=== PATIENT | male | born 1990 | race African-American/Black ===

== ENCOUNTER 2021-09-15 16:09 | Inpatient (IN) | payer SELFPAY ==
[~2021-09-15] VITALS: Ht 175.3 cm; Wt 64.9 kg
--- NOTE | 2021-09-15 16:41 | NUR ---
BIBRA - PATIENT FOUND UNCONSCIOUS ON SIDE WALK, NO ID NO INFORMATION NO WALLET ON PATIENT, BLOOD NOTED ON LEFT DISTAL FINGER APPEARS TO BE FROM SOMEONE ELSE, NO SKIN TEARS NO TRAUMA NOTED ON EXTERIOR OF BODY, WILL NOT SPEAK NOR RESPOND TO ANY VERBAL COMMANDS, GIVEN ICE WATER, DID NOT DRINK - MOVED LIPS BUT DID NOT SWALLOW. MD TO EVALUATE FOR ORDERS AND ANY TESTS AT THIS TIME, GIVEN WARM BLANKET, EKG CONNECTED, OXYGEN READER APPLIED TO MIDDLE RIGHT FINGER 98-100% ROOM AIR, NO SOB NOTED, NO LABORED BREATHING NOTED, B/P CUFF APPPLIED, TEMP AT 97.9 AXILLARY LEFT SIDE. WILL CLOSELY MONITOR AT THIS TIME.
--- NOTE | 2021-09-15 17:20 | NUR ---
BS = 79
[2021-09-15] MEDS ORDERED: IV NS 0.9% 1,000 ML BAG IV ONE (18:30)
--- NOTE | 2021-09-15 18:55 | NUR ---
20 G R AC, RESTRAINTS BI-LATERAL ARMS DUE TO RESTLESS DURING IV IMPLEMENTATION EFFECTIVE, BLOOD DRAW FOR LABS COMPLETED, NS RUNNING VIA GRAVITY, IV PATENT, FLUSHING WELL INTACT
--- NOTE | 2021-09-15 19:10 | NUR ---
STRAIGHT CATH TO OBTAIN URINE SPECIMEN
--- NOTE | 2021-09-15 19:22 | NUR ---
ATTEMPTED TO OBTAIN URINE SPECIMEN WITH STRAIGHT CATH, NO URINE OUT PUT AT THIS TIME, WILL WAIT UNTIL IV FLUIDS ARE ADMIN AND TRY AGAIN PER MD ORDERS
--- NOTE | 2021-09-15 19:30 | NUR ---
DETECTOR CAR OPERATOR AT PT'S BEDSIDE
[2021-09-15 20:33] LABS: BASOPHILS % (AUTO) 0.3 % (0.0-2.0); HEMATOCRIT 39 % (39-51); HEMOGLOBIN 12.5 g/dL (13.5-17.5); LYMPHOCYTES # (AUTO) 0.8 K/uL (0.8-4.8); LYMPHOCYTES % (AUTO) 12.3 % (20.0-44.0); MEAN CORPUSCULAR HGB CONC 32 g/dl (31.0-36.0); MEAN CORPUSCULAR VOLUME 83 fL (80-96); MONOCYTES # (AUTO) 0.5 K/uL (0.1-1.30); NEUTROPHILS # (AUTO) 5.4 K/uL (1.8-8.9); NEUTROPHILS % (AUTO) 80.4 % (43.0-81.0); PLATELET COUNT (AUTO) 187 K/uL (150-450); RED BLOOD CELL COUNT(AUTO) 4.68 MIL/uL (4.5-6.0); WHITE BLOOD COUNT (AUTO) 6.7 K/uL (4.3-11.0)
--- NOTE | 2021-09-15 20:38 | NUR ---
URINE COLLECTED AND SENT TO LAB
[2021-09-15 20:45] LABS: CALCIUM, SERUM 8.5 mg/dL (8.5-10.1); CARBON DIOXIDE 27 mmol/L (21-32); CHLORIDE 105 mmol/L (98-107); CREATININE 0.9 mg/dL (0.6-1.3); GLUCOSE 98 mg/dL (74-106); POTASSIUM 3.8 mmol/L (3.5-5.1); SODIUM SERUM 140 mmol/L (136-145); UREA NITROGEN, BLOOD 19 mg/dL (7-18)
[2021-09-15 20:48] LABS: ALANINE AMINOTRANSFERASE 17 U/L (12-78); ALCOHOL, BLOOD < 3 mg/dL (0-0); ALKALINE PHOSPHATASE 62 U/L (46-116); ASPARTATE AMINOTRANSFERASE 24 U/L (15-37); BILIRUBIN,DIRECT 0.1 mg/dL (0.0-0.2); BILIRUBIN,TOTAL 0.6 mg/dL (0.2-1.0); TOTAL PROTEIN, SERUM 7.4 g/dL (6.4-8.2)
[2021-09-15 20:50] LABS: ACETAMINOPHEN < 0 ug/ml (10-30)
[2021-09-15] MEDS ORDERED: LORAZEPAM INJ 2 MG/ML VIAL IV ONE (21:00)
[2021-09-15 21:19] LABS: BILIRUBIN,URINE SMALL (NEGATIVE); COLOR,URINE YELLOW (YELLOW); LEUKOCYTE ESTERASE ,URINE NEGATIVE (NEGATIVE); NITRITE, URINE NEGATIVE (NEGATIVE); PH,URINE 5.5 (5.0-8.0); PROTEIN,URINE 100 mg/dl (NEGATIVE); UGLUCOSE NEGATIVE (NEGATIVE); UROBILINOGEN,URINE 0.2 EU/dL (0.2)
[2021-09-15 21:27] LABS: BACTERIA,URINE RARE /HPF (None Seen); RBC,URINE 21-50 /HPF (0-2); SQUAMOUS EPITHELIAL CELL,UR 0-2 /HPF (None Seen); WBC,URINE 0-2 /HPF (0-3)
--- NOTE | 2021-09-15 21:32 | NUR ---
325 - 1 . REPORT GIVEN TO NAKUL KimW RN FOR LILIANA
[2021-09-15] MEDS ORDERED: LORAZEPAM INJ 2 MG/ML VIAL ONE (21:38)
--- NOTE | 2021-09-15 21:39 | NUR ---
MRSA SWAB COLLECTED AND SENT TO LAB. PATIENT'S BELONGINGS LIST DONE.
--- NOTE | 2021-09-15 21:42 | NUR ---
TRANSFERRING PT TO 325 VIA ACLS PROTOCOL
[2021-09-15 21:45] VITALS: BP 129/73
[2021-09-15] MEDS ORDERED: ONDANSETRON HCL/PF 4 MG/2 ML VIAL IVP PRN (22:00)
[2021-09-15] MEDS ORDERED: ENOXAPARIN SODIUM 40 MG/0.4 ML DISP.SYRIN SQ SCH (22:00)
[2021-09-15] MEDS ORDERED: ACETAMINOPHEN 325 MG TABLET PO PRN (22:00)
[2021-09-15] MEDS ORDERED: MORPHINE SULFATE INJ 2 MG/ML DISP.SYRIN IV PRN (22:00)
--- NOTE | 2021-09-15 22:30 | NUR ---
TUMBLER DRIER OPERATORINSURANCE AND FINANCIAL SERVICES AGENT NOTES: RECEIVED PATIENT AWAKE FROM ER VIA GURNEY, APPEARS CALM AND QUIET, PLACE IN BED COMFORTABLY, BED IN LOW POSITION, CALL LIGHTS WITHIN REACH, NO COMPLAIN OF PAIN AND DISCOMFORT AT THIS TIME, ON TELE MONITORING SR-83 WITH RAC#20 WITH ONGOING NSS@75MLPER HOUR INFUSING WELL, ASSESSMENT DONE PATIENT IS UNCOOPERATIVE NOT RESPONDING TO QUESTION, APPEARS CONFUSED BUT NONE COMBATIVE. INVENTORY DONE, SKIN ASSESSMENTS DONE, INTACT, NO SKIN ISSUES OBSERVED, PATIENT WAS ORIENTED TO ROOM REMIND TO USE CALLLIGHTS WHEN NEEDED ASSISTANCE, KEPT CLEAN AND DRY ALL NEEDS MET WILL CONTINUE TO MONITOR.
[2021-09-15] MEDS: IV NS 0.9% 1,000 ML IV SCH (23:13)
[2021-09-16] VITALS: BP 125/76
--- NOTE | 2021-09-16 01:00 | NUR ---
RN NOTES: PATIENT ATTEMPT TO LEAVE THE ROOM. REMOVE IV LINE AND TELE MONITORING, BECOMING COMBATIVE STILLC APPEARS CONFUSED AND STARTED TO BECOME COMBATIVE, CALLED SECURITY AND PLACE PATIENT ON RESTRAINT, NOTIFY HOSPITALIST AND ORDER ATIVAN 2MG ONE TIME GIVEN NOTED AND CARRY OUT, PATIENT WAS ON BILATERAL SOFT RESTRAINT, WITH !:1 SITTER, IV REINSERT AGAIN ON RIGHT HAND,
[2021-09-16] MEDS ORDERED: LORAZEPAM INJ 2 MG/ML VIAL IM/IV ONE (02:00)
[2021-09-16] MEDS ORDERED: HALOPERIDOL DECANOATE IM 100 MG/ML AMPUL IM ONE ×2 (02:30)
--- NOTE | 2021-09-16 02:30 | NUR ---
RN NOTES PATIENT WAS ABLE TO REMOVED HIS RESTRAINT AND ATTEMPTED TO LEAVE THE ROOM AGAIN APPEARS CONFUSED CALL SECURITY FOR ASSISTANCE AND CALL PLACED BACK ON HIS ROOM. REINSERTED IV LINE WAS REMOVED PATIENT REFUSED TO BE REINSERTED, ORDERED 1:! SITTER, WILL CONTINUE TO MONITOR.
[2021-09-16] MEDS ORDERED: HALOPERIDOL LACTATE INJ 5 MG/ML VIAL IM ONE (03:00)
[2021-09-16 04:00] VITALS: BP 120/68
--- NOTE | 2021-09-16 06:56 | NUR ---
RN CLOSING NOTES: PATIENT SLEEP IN BED COMFORTABLY, BED IN LOW POSITION CALL LIGHTS WITHIN REACH,NO COMPLAIN OF PAIN AND DISCOMFORT AT THIS TIME, PATIENT IS A/O X2-CONFUSED DISORIENTED, ON ROOM AIR SATURATING WELL, PATIENT WITH 1:1 SITTER ATTEMPTING TO LEAVE AND COMBATIVE, PATIENT KEPT CLEAN AND DRY ALL NEEDS MET ENDORSE TO INCOMING SHIFT.
[2021-09-16 07:19] LABS: BASOPHILS % (AUTO) 0.1 % (0.0-2.0); EOSINOPHILS % (AUTO) 0.4 % (0.0-6.0); HEMATOCRIT 38 % (39-51); HEMOGLOBIN 12.3 g/dL (13.5-17.5); LYMPHOCYTES # (AUTO) 1.4 K/uL (0.8-4.8); LYMPHOCYTES % (AUTO) 22.5 % (20.0-44.0); MEAN CORPUSCULAR HGB CONC 32 g/dl (31.0-36.0); MEAN CORPUSCULAR VOLUME 83 fL (80-96); MONOCYTES # (AUTO) 0.8 K/uL (0.1-1.30); MONOCYTES % (AUTO) 11.9 % (2.0-12.0); NEUTROPHILS # (AUTO) 4.1 K/uL (1.8-8.9); NEUTROPHILS % (AUTO) 65.1 % (43.0-81.0); PLATELET COUNT (AUTO) 167 K/uL (150-450); RED BLOOD CELL COUNT(AUTO) 4.58 MIL/uL (4.5-6.0); WHITE BLOOD COUNT (AUTO) 6.3 K/uL (4.3-11.0)
[2021-09-16 07:41] LABS: ALBUMIN 3.6 g/dL (3.4-5.0); BILIRUBIN,TOTAL 0.6 mg/dL (0.2-1.0); CALCIUM, SERUM 8.4 mg/dL (8.5-10.1); CREATININE 0.7 mg/dL (0.6-1.3); MAGNESIUM 2.7 mg/dL (1.8-2.4); PHOSPHORUS 4.2 mg/dL (2.5-4.9); POTASSIUM 3.9 mmol/L (3.5-5.1); TOTAL PROTEIN, SERUM 6.8 g/dL (6.4-8.2)
[2021-09-16] MEDS ORDERED: HALOPERIDOL LACTATE INJ 5 MG/ML VIAL IM PRN (10:00)
--- NOTE | 2021-09-16 10:00 | NUR ---
PATIENT IS AWAKE. ABLE TO REMOVE THE BILATERAL HAND SOFT RESTRAINTS WHILE SITTER WAS TENDING TO ANOTHER PATIENT ON THE NEXT BED. PATIENT IS AWAKE, AMBULATORY, DOES NOT KNOW HIS NAME, ABLE TO ACKNOWLEDGED HE IS IN THE HOSPITAL. DR. VELASQUEZ SPOKE WITH THE PATIENT AND ASSESSED. PATIENT IS VERY RESTLESS, KEEPS PACING BACK AND FORTH OF THE UNIT, ATTEMPTING TO GO DOWNSTAIRS IN THE ELEVATOR. REFUSED TO STAY IN HIS ROOM. DR. VELASQUEZ ORDERED HALDOL 5MG IM Q8HRS PRN AND ATIVAN 2MG IV Q6HRS PRN FOR RESTLESSNESS. WILL MONITOR PATIENT AND CARRY OUT THE ORDERS.
--- NOTE | 2021-09-16 10:20 | NUR ---
PATIENT IS VERY RESTLESS. ATIVAN 2MG/1ML GIVEN VIA IV PUSH. WILL MONITOR.
[2021-09-16] MEDS ORDERED: LORAZEPAM INJ 2 MG/ML VIAL IV PRN (10:30)
--- NOTE | 2021-09-16 10:40 | NUR ---
RAKEL RAI, BEHAVIORAL/METER MAKER ASSESSED PATIENT AT BEDSIDE. PER FREDI, PATIENT IS NOT "HOLDABLE". PATIENT IS NOT WILLING TO GIVE HIS NAME, PATIENT IS NOT AGGRESSIVE, IF PATIENT WANTS TO LEAVE HOSPITAL THEN HE CAN LEAVE. CHARGE NURSE RENAE AND AWARE. PATIENT IS SITTING AT THE CHAIR IN THE ROOM. WILL MONITOR.
--- NOTE | 2021-09-16 11:00 | NUR ---
SS Note: SS Consult requested for Ryder Harkins as pt. is confused, restless and wanting to be discharged to self. SW met with pt. at bedside and the pt. is alert and oriented x 2. Pt. is able to engage in meaningful conversation. Pt. is guarded. Pt. states he is refusing to provide name, address or birthrate as, "that is very personal information". The pt. appears well-groomed (clean, well shaven) and states that he was jogging when he became dehydrated and paramedics picked him up and brought him to the hospital. Pt. is pleasant and remained calm throughout interview. The pt. denies SI/HI and denies hallucinations. SW explored pt.'s mental health Hx. Pt denies any mental health diagnoses or psychotropic medication use. The pt. states he suffers from migraines and that resides in [place]. SW explored pt.'s familial support. Pt. states he is not and lives alone. Pt. states there is no family or friends that we can call. SW helped pt. with discharge plan and pt. is agreeable to [place] and stated he can find his way home. DERECK asked patient for his name & address on 4 separate occasions and pt. still refused. SW encouraged pt. to rest and stay to complete medical care until clearance. Pt. seemed ambivalent about it but has not left. DERECK discussed with patient's nurse. The pt. does not meet 5150 hold criteria at this time and is able to leave AMA if he wants. DERECK will provide pt. with homeless resources as a precaution and have him sign the homeless waiver. Year-round shelters: [facility] [address] [place] [place] [address] ; [facility] [address] [place] [address]; [facility] [address] [facility] [address] Winter Shelters: SPA 2 | [facility] Nicoleder: Carola aldrich the [place] Address: Confidential (call for location ) Population Served: Coed # of Beds: 57 SPA 4 | [facility] Provider: [facility] Address: [address] [place] [address] # of Beds: 49 Population Served: Coed SPA 6 | [facility] Provider: [facility]: [address] [facility] [address] # of Beds: 49 Population Served: Coed [facility] Provider: Silvano Grace DCD Address: [address] [facility] [address] # of Beds: 20 Population Served: Women GO Facility Provider: [facility] Last Address: [address] [facility] [address] # of Beds: 30 Population Served: Women SPA 8 | [facility] Provider: Aliya aldrich Kristen Address: [address] [facility] [address] # of Beds: 65 Population Served: Coed Hygiene: [facility]: [address] [facility] ; [facility] [address] [facility] ; [facility] [address] [facility] . Food Resources: [place] [facility] at [facility]- [address] [facility]; Meet Each Need with Dignity ([facility]) [address] [facility]; [facility] [address] [facility]; [facility] [address] [facility]. Mental Health resources provided: [facility] [address] [place] [address] ; [facility] [address] [facility] [address], [place] [address] ; [facility] [address] [place] [address] ; [facility] [address] [place] [address] Healthcare Clinics: [facility] [address] [facility], [address] [place]. [place] ; [facility] [address] [facility] [address] [place] [address]; [facility] [address] [facility] [phone]) [phone] Counseling--Outpatient [facility] [address] [facility], [place] [address] (Specializes in in-depth psychotherapy for emotional distress: anxiety, depression, interpersonal conflicts, life transitions, childhood abuse) [facility] [address] [place] [address] (Assist with solving problem marital difficulties, separation & divorce, aging parents, & grief, chronic & terminal illness) [facility] [address] [place] [address] (Deal with loss & grief, anxiety, marital difficulties) [facility] Health [facility] [address] [facility], [address] [place] [address] (Provide in-home mental services to people who are incapable of leaving their homes) [facility] Elder[facility] Senior Service/[facility] [address] [facility] [place] [address] [facility] [address] [facility] [place] [address] PSYCHIATRIC OUTPATIENT SERVICES [facility] Partial Hospitalization and Intensive Outpatient Program (Managed Care and [place] Only)[address] [facility]. [facility] [phone] [facility] Partial Hospitalization and Outpatient [id number] [facility] [address] [place], [place] [phone] [facility] Mental Health Center [id number] [facility] [address] [place], [place] [phone] [facility] Partial Hospitalization and Outpatient [id number] [place], [phone] Substance Abuse resources provided included: [facility] Substance Abuse Self-Helpline ([facility]) ; [facility] [address] [facility]. [place] [address] ; [facility] [address] [facility] [address] ; [facility] [address] [place] [address] ; [facility] [address] [facility] [id number] ; [facility] [address] [facility] [address] ; [facility] [address] [facility] [phone] ; [facility] Substance Abuse Helpline([facility] ; [facility] ; [facility] [place]; [facility] [place]; [facility] [place]; [facility] [place]; [facility] [place]; [facility]; [facility] [place]; Alcoholics Anonymous -SFV; Th-Gimq-Mrswtej ; Marijuana Anonymous -[facility]; Narcotics Anonymous [email or web address];
[2021-09-16] MEDS: IV NS 0.9% 1,000 ML IV SCH (12:58)
--- NOTE | 2021-09-16 14:45 | NUR ---
PATIENT IS RESTLESS AND WANTING TO LEAVE THE HOSPITAL. PATIENT ASKED CHARGE NURSE RENAE IF HE CAN LEAVE HOSPITAL. PATIENT IS NOT "HOLDABLE" AND IS ABLE TO LEAVE HOSPITAL. PATIENT SIGNED "AGAINST MEDICAL ADVISE" FORM. RN EXPLAINED THE RISKS OF DOING "AMA", PATIENT UNDERSTOOD. PATIENT SAID HIS REAL NAME "SEYMOUR WASHINGTON" BUT REFUSED TO GIVE HIS SPECIFIC ADDRESS. PER PATIENT, HE LIVES IN [place] BUT DOES NOT WANT TO GIVE OUT SPECIFIC ADDRESS. PATIENT DOES NOT HAVE SIGNS OF BEING HOMELESS. PATIENT IS WELL-SHAVEN, WELL-CUT HAIR, CLEAN CLOTHINGS, AND DOES NOT SEEM TO BE A HOMELESS PERSON. RN DISCONTINUED IV ACCESS ON RIGHT AC. AND ESCORTED PATIENT DOWNSTAIRS TO THE LOBBY.
== END 2021-09-16 14:44 | disposition left against medical advice (07) | DRG 884 ==
LOC: ER 16:14 → TELE 21:29 → MED 09-16 03:54
PROVIDERS: ADMIT Internal Medicine; ATTEND Internal Medicine
DX: F06.1 Catatonic disorder due to known physiological condition (principal); G92.9 Unspecified toxic encephalopathy; R31.9 Hematuria, unspecified; Z20.822 Contact with and (suspected) exposure to COVID-19
CPT/HCPCS: 36415; 70450-TC; 80048-TC; 80053-TC; 80076-TC; 81001; 82550-TC; 82553; 82962-TC; 83735-TC; 84100-TC; 84484-TC; 85025-TC; 87081-TC; C9803; G0378; G0480; J1650; J2060; J7030